=== PATIENT | male | born 1960 | race Hispanic/Latino ===

== ENCOUNTER 2021-08-29 08:42 | Outpatient (AMBR) | payer MEDICARE, MEDICAID, SELFPAY ==
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
--- NOTE | 2021-08-05 10:39 | PT.ODAYNRPT ---
PT Outpatient Daily Note Date of Service: 08/05/21 OP Daily Note Visit Reasons: left total knee Outpatient Physical Therapy Treatment Date: 08/05/21 Subjective: Pt's knee still hurts. Pt stated that he will be having back surgery in Sep 2019 Objective: Please see flow chart for list of ther ex performed Assessment: tolerate exercises with minimal pain; increase knee flexion AROM after stretching Plan: Continue with PT Length of Time (minutes) of Treatment: 30 Minutes Office Procedures PT Treatments PT Date of Service: 08/03/21 OP PT Eval Mod Complex 30 minutes: Yes PT Treatments PT Date of Service: 08/05/21 Therapeutic Exercise 30 minutes: Yes
--- NOTE | 2021-08-10 09:18 | PT.ODAYNRPT ---
PT Outpatient Daily Note Date of Service: 08/10/21 OP Daily Note Visit Reasons: left total knee Outpatient Physical Therapy Treatment Date: 08/10/21 Subjective: Pt mention that his knee is stiff and was sore after last treatment session Objective: Please see flow chart for list of ther ex performed Assessment: tolerate exercises with minimal pain Plan: Continue with PT Length of Time (minutes) of Treatment: 30 Minutes Office Procedures PT Treatments PT Date of Service: 08/10/21 Therapeutic Exercise 30 minutes: Yes PT Treatments PT Date of Service: 08/03/21 OP PT Eval Mod Complex 30 minutes: Yes PT Treatments PT Date of Service: 08/05/21 Therapeutic Exercise 30 minutes: Yes
--- NOTE | 2021-08-12 10:04 | PT.ODAYNRPT ---
PT Outpatient Daily Note Date of Service: 08/12/2021 OP Daily Note Visit Reasons: left total knee Outpatient Physical Therapy Treatment Date: 08/12/21 Subjective: pt came in with no complaints and eager to start PT. Objective: see flow sheet. Assessment: add thera band for his walking ther ex for resistance and strength training. pt tolerated the thera band well with no complaints. pt did not rest in between laps. pt on prone for knee flexion stretch in which he still needs more practice. pt does have limited knee flexion ROM. pt refused ice pack pos ther ex. Plan: continue POC per PT. Length of Time (minutes) of Treatment: 30 Minutes Office Procedures PT Treatments PT Date of Service: 08/10/21 Therapeutic Exercise 30 minutes: Yes PT Treatments PT Date of Service: 08/12/21 Therapeutic Exercise 30 minutes: Yes PT Treatments PT Date of Service: 08/03/21 OP PT Eval Mod Complex 30 minutes: Yes PT Treatments PT Date of Service: 08/05/21 Therapeutic Exercise 30 minutes: Yes
--- NOTE | 2021-08-17 09:41 | PT.ODAYNRPT ---
PT Outpatient Daily Note Date of Service: 08/17/21 OP Daily Note Visit Reasons: left total knee Outpatient Physical Therapy Treatment Date: 08/17/21 Subjective: Pt's knee feels better. Pt stated that he notice he's able to bend his knee with less pain. Squatting activities are getting easier. Objective: Please see flow chart for list of ther ex performed Assessment: tolerate exercises with minimal pain; continue to improve with knee flexion AROM Plan: Continue with PT Length of Time (minutes) of Treatment: 30 Minutes Office Procedures PT Treatments PT Date of Service: 08/10/21 Therapeutic Exercise 30 minutes: Yes PT Treatments PT Date of Service: 08/12/21 Therapeutic Exercise 30 minutes: Yes PT Treatments PT Date of Service: 08/03/21 OP PT Eval Mod Complex 30 minutes: Yes PT Treatments PT Date of Service: 08/05/21 Therapeutic Exercise 30 minutes: Yes PT Treatments PT Date of Service: 08/17/21 Therapeutic Exercise 30 minutes: Yes
--- NOTE | 2021-08-19 13:17 | PTNOTE_ITS ---
PT Outpatient Daily Note Date of Service: 08/19/2021 OP Daily Note Visit Reasons: left total knee Outpatient Physical Therapy Treatment Date: 08/19/21 Subjective: pt came in with no complaints of the knee and no concerns. Objective: see flow sheet. Assessment: pt tolerated PROM of knee flexion stretch in supine with no complaints. he was able to relax which increased his ROM. he was able to weight shift to single leg as he ascends the step with no hands on the rail. pt received ice pack post treatment. Plan: continue POC per PT. Length of Time (minutes) of Treatment: 30 Minutes C2 TACTICAL ANALYSIS TECHNICIAN Service Modifier Method I: Divide the number of min of care provided by the C2 TACTICAL ANALYSIS TECHNICIAN/STATISTICAL TECHNICIAN by the total min of care provided then multiply by 100. If greater than 11 percent modifier is required. Method II: Divide the total time of care provided to patient by 10 (round to the nearest whole number) and add 1 min. to set the minimum time requirement. If treatment total was 60 min., then 10% of 6 min Did C2 TACTICAL ANALYSIS TECHNICIAN provide more than 10% of the care?: Yes Office Procedures PT Treatments PT Date of Service: 08/10/21 Therapeutic Exercise 30 minutes: Yes PT Treatments PT Date of Service: 08/12/21 Therapeutic Exercise 30 minutes: Yes PT Treatments PT Date of Service: 08/19/21 Therapeutic Exercise 30 minutes: Yes PT Treatments PT Date of Service: 08/03/21 OP PT Eval Mod Complex 30 minutes: Yes PT Treatments PT Date of Service: 08/05/21 Therapeutic Exercise 30 minutes: Yes PT Treatments PT Date of Service: 08/17/21 Therapeutic Exercise 30 minutes: Yes
--- NOTE | 2021-08-29 10:02 | PTNOTE_ITS ---
PT Outpatient Daily Note Date of Service: 08/29/2021 OP Daily Note Visit Reasons: left total knee Outpatient Physical Therapy Treatment Date: 08/29/21 Subjective: pt states his knee still feels swollen and inflamed. Objective: see flow sheet. Assessment: added new ther ex in which he was able to demonstrate good balance on the rocker board. added thera band for new exercise in which he completed 6x laps with. noted good knee extension and form during his calf stretch. pt did not have difficulty with ther ex. ice pack post treatment. Plan: continue POC per PT. Length of Time (minutes) of Treatment: 30 Minutes AIRCRAFT ENGINE SPECIALIST Service Modifier Method I: Divide the number of min of care provided by the AIRCRAFT ENGINE SPECIALIST/BENEDICTO by the total min of care provided then multiply by 100. If greater than 11 percent modifier is required. Method II: Divide the total time of care provided to patient by 10 (round to the nearest whole number) and add 1 min. to set the minimum time requirement. If t reatment total was 60 min., then 10% of 6 min PT CQ modifier applied: CQ Modifier applied Office Procedures PT Treatments PT Date of Service: 08/10/21 Therapeutic Exercise 30 minutes: Yes PT Treatments PT Date of Service: 08/12/21 Therapeutic Exercise 30 minutes: Yes PT Treatments PT Date of Service: 08/19/21 Therapeutic Exercise 30 minutes: Yes PT Treatments PT Date of Service: 08/29/21 Therapeutic Exercise 30 minutes: Yes PT Treatments PT Date of Service: 08/03/21 OP PT Eval Mod Complex 30 minutes: Yes PT Treatments PT Date of Service: 08/05/21 Therapeutic Exercise 30 minutes: Yes PT Treatments PT Date of Service: 08/17/21 Therapeutic Exercise 30 minutes: Yes
== END 2021-09-02 23:59 | disposition home or self-care (01) ==
PROVIDERS: PCP Family Medicine; Referring Provider Family Medicine; Visit Provider Orthopaedic Surgery
DX: M25.562 Pain in left knee (principal); R26.2 Difficulty in walking, not elsewhere classified; Z96.652 Presence of left artificial knee joint
CPT/HCPCS: 97110; 97162